=== PATIENT | male | born 1955 | race Caucasian/White ===

== ENCOUNTER 2021-12-24 10:44 | Inpatient (IN) | payer OTHER ==
[2021-12-24] MEDS ORDERED: Morphine 4 MG/ML VIAL ONE ×2 (11:44→14:41)
[2021-12-24 11:53] LABS: #Eosinphils 0.1 thou/uL (0.0-0.7); #Lymphocytes 0.9 thou/uL (1.20-3.40); #Monocytes 0.9 thou/uL (0.11-0.59); #Neutrophils 5.5 thou/uL (1.40-6.50); %Eosinophils 0.8 % (0.0-10.0); %Lymphocytes 12.4 % (21.0-51.0); %Monocytes 12.6 % (0.0-10.0); %Neutrophils 74.1 % (42.0-75.0); Hemoglobin 12.9 g/dL (14.0-18.0); Mean Corpuscular HGB CONC 32.5 g/dL (32.0-36.0); Mean Corpuscular Hemoglobin 27.5 pg (27.0-31.0); Mean Corpuscular Volume 84.6 fl (78.0-98.0); Mean Platelet Volume 8.3 fL (7.4-10.4); Platelet Count 120 thou/uL (130-400); RBC Distribution Width 16.6 % (11.5-14.5); Red Blood Cell (RBC) Count 4.68 mill/uL (4.70-6.10); White Blood Cell (WBC) Count 7.4 thou/uL (4.8-10.8)
[2021-12-24 12:18] LABS: ALT (SGPT) 19 U/L (8-55); AST (SGOT) 35 U/L (5-34); Albumin 4.1 g/dL (3.4-4.8); Alkaline Phosphatase 79 U/L (40-110); Anion Gap 15 mmol/L (10-20); BUN (Urea Nitrogen) 17 mg/dL (8.4-25.7); Bilirubin, Total 1.5 mg/dL (0.2-1.2); CK (CPK) 608 U/L (30-200); Calc. Creatinine Clearance 0 mL/min (70-130); Calcium 9.4 mg/dL (7.8-10.44); Carbon Dioxide 26 mmol/L (23-31); Chloride 96 mmol/L (98-107); Estimated GFR 89; Glucose 121 mg/dL (80-115); Potassium 4.5 mmol/L (3.5-5.1); Protein, Total 7.1 g/dL (5.8-8.1); Sodium 132 mmol/L (136-145)
[2021-12-24] MEDS ORDERED: Piperacillin/Tazobactam 3.375 GM VIAL ONE (13:49)
[2021-12-24] MEDS ORDERED: VANCOMYCIN 2 GRAM/500 ML BAG 2 GM in Premix Bag 1 BAG IVPB SCH (14:15)
[2021-12-24] MEDS ORDERED: TETANUS, DIPHTHERIA TOX,ADULT (TDVAX) 0.5 ML VIAL IM ONE (15:40)
[2021-12-24] MEDS ORDERED: Ondansetron PF 4 MG/2 ML Vial IVP PRN (15:40)
[2021-12-24] MEDS ORDERED: Morphine 2 MG/ML VIAL SLOW IVP PRN (15:40)
[2021-12-24] MEDS ORDERED: Sodium Chloride 0.9% 1,000 ML IV SCH (15:45)
[2021-12-24] MEDS ORDERED: Cyclobenzaprine 10 MG TAB PO PRN (15:46)
[2021-12-24] MEDS ORDERED: traMADol HCl 50 MG TAB PO PRN (15:46)
[2021-12-24 16:41] VITALS: BMI 29.9
[2021-12-24] MEDS: Acetaminophen 500 MG TAB PO SCH ×2 (17:33→23:44)
[2021-12-24] MEDS: traMADol HCl 50 MG TAB PO SCH ×2 (17:33→23:45)
[2021-12-24] MEDS ORDERED: Diazepam 5 MG TAB PO PRN (18:28)
[2021-12-24] MEDS: Bacitracin 1 PK TOP SCH (21:37)
[2021-12-24] MEDS: Gabapentin 300 MG CAP PO SCH (21:37)
[2021-12-24] MEDS: Famotidine/PF 20 mg/2ml Vial SLOW IVP SCH (21:37)
[2021-12-24] MEDS: Senokot S 8.6-50 MG TAB PO SCH (21:37)
[2021-12-24] MEDS: Oxazepam 10 MG CAP PO SCH (21:38)
[2021-12-24] MEDS: Sotalol HCl 80 MG TAB PO SCH (21:38)
[2021-12-25] MEDS: Oxazepam 10 MG CAP PO SCH ×3 (04:57→21:28)
[2021-12-25] MEDS: traMADol HCl 50 MG TAB PO SCH (04:57)
[2021-12-25] MEDS: Acetaminophen 500 MG TAB PO SCH (04:57)
[2021-12-25 06:37] LABS: #Eosinphils 0.1 thou/uL (0.0-0.7); #Lymphocytes 1.2 thou/uL (1.20-3.40); #Monocytes 0.4 thou/uL (0.11-0.59); #Neutrophils 3.3 thou/uL (1.40-6.50); %Lymphocytes 23.4 % (21.0-51.0); %Monocytes 8.2 % (0.0-10.0); %Neutrophils 65.5 % (42.0-75.0); Hemoglobin 12.1 g/dL (14.0-18.0); Mean Corpuscular HGB CONC 30.4 g/dL (32.0-36.0); Mean Corpuscular Hemoglobin 26.5 pg (27.0-31.0); Mean Corpuscular Volume 87.2 fl (78.0-98.0); Mean Platelet Volume 9.1 fL (7.4-10.4); Platelet Count 132 thou/uL (130-400); Red Blood Cell (RBC) Count 4.55 mill/uL (4.70-6.10); White Blood Cell (WBC) Count 5.1 thou/uL (4.8-10.8)
[2021-12-25 06:48] LABS: Anion Gap 13 mmol/L (10-20); BUN (Urea Nitrogen) 15 mg/dL (8.4-25.7); Calc. Creatinine Clearance 97 mL/min (70-130); Carbon Dioxide 26 mmol/L (23-31); Chloride 101 mmol/L (98-107); Estimated GFR 69; Glucose 170 mg/dL (80-115); Phosphorus 3.7 mg/dL (2.3-4.7); Potassium 4.1 mmol/L (3.5-5.1); Sodium 136 mmol/L (136-145)
[2021-12-25] MEDS ORDERED: Acetaminophen/Codeine 30-300mg Tablet PO PRN (08:08)
[2021-12-25] MEDS ORDERED: Cyclobenzaprine 10 MG TAB PO PRN (08:10)
[2021-12-25] MEDS ORDERED: Morphine 4 MG/ML VIAL SLOW IVP SCH (08:15)
[2021-12-25] MEDS: Famotidine/PF 20 mg/2ml Vial SLOW IVP SCH ×2 (08:38→19:59)
[2021-12-25] MEDS: Thiamine 100 MG TAB PO SCH (08:38)
[2021-12-25] MEDS: Losartan 25 MG TAB PO SCH (08:38)
[2021-12-25] MEDS: Bacitracin 1 PK TOP SCH ×2 (08:38→20:07)
[2021-12-25] MEDS: Senokot S 8.6-50 MG TAB PO SCH ×2 (08:39→19:59)
[2021-12-25] MEDS: Acetaminophen 325 MG TAB PO SCH ×3 (08:39→19:58)
[2021-12-25] MEDS: Folic Acid 1 MG TAB PO SCH (08:39)
[2021-12-25] MEDS: Sotalol HCl 80 MG TAB PO SCH ×2 (08:39→19:59)
[2021-12-25] MEDS: Gabapentin 300 MG CAP PO SCH ×3 (08:39→19:58)
[2021-12-25] MEDS: Escitalopram Oxalate 10 mg Tablet PO SCH (08:39)
[2021-12-25] MEDS: Polyethylene Glycol 3350 17 GM Packet PO SCH (08:41)
[2021-12-25] MEDS ORDERED: FLU VACC QS2022-23(65YR UP)/PF 240 MCG/0.7 ML SYRINGE IM ONE (09:00)
[2021-12-25] MEDS: Acetaminophen/Codeine 30-300mg Tablet PO SCH ×2 (12:08→18:07)
[2021-12-25] MEDS: Ibuprofen 200 MG TAB PO SCH ×2 (15:34→21:28)
[2021-12-26] MEDS: Acetaminophen/Codeine 30-300mg Tablet PO SCH ×5 (00:01→23:29)
[2021-12-26] MEDS: Acetaminophen 325 MG TAB PO SCH ×4 (03:28→21:10)
[2021-12-26] MEDS: Ibuprofen 200 MG TAB PO SCH ×3 (05:41→21:10)
[2021-12-26] MEDS: Oxazepam 10 MG CAP PO SCH ×3 (05:42→21:11)
[2021-12-26] MEDS: Gabapentin 300 MG CAP PO SCH ×3 (08:45→21:10)
[2021-12-26] MEDS: Famotidine/PF 20 mg/2ml Vial SLOW IVP SCH (08:47)
[2021-12-26] MEDS: Losartan 25 MG TAB PO SCH (08:48)
[2021-12-26] MEDS: Thiamine 100 MG TAB PO SCH (08:49)
[2021-12-26] MEDS: Folic Acid 1 MG TAB PO SCH (08:49)
[2021-12-26] MEDS: Sotalol HCl 80 MG TAB PO SCH ×2 (08:49→21:11)
[2021-12-26] MEDS: Senokot S 8.6-50 MG TAB PO SCH ×2 (08:51→21:11)
[2021-12-26] MEDS: Polyethylene Glycol 3350 17 GM Packet PO SCH (08:51)
[2021-12-26] MEDS: Bacitracin 1 PK TOP SCH ×2 (08:51→21:10)
[2021-12-26] MEDS: Escitalopram Oxalate 10 mg Tablet PO SCH (08:53)
[2021-12-26] MEDS: Famotidine 20 MG TAB PO SCH (21:10)
[2021-12-27] MEDS: Acetaminophen 325 MG TAB PO SCH ×2 (02:14→09:14)
[2021-12-27] MEDS: Acetaminophen/Codeine 30-300mg Tablet PO SCH (05:39)
[2021-12-27] MEDS: Ibuprofen 200 MG TAB PO SCH (05:39)
[2021-12-27] MEDS: Oxazepam 10 MG CAP PO SCH (05:40)
[2021-12-27] MEDS ORDERED: Apixaban 5 MG TAB PO SCH ×2 (09:00)
[2021-12-27] MEDS: Thiamine 100 MG TAB PO SCH (09:13)
[2021-12-27] MEDS: Famotidine 20 MG TAB PO SCH (09:13)
[2021-12-27] MEDS: Folic Acid 1 MG TAB PO SCH (09:13)
[2021-12-27] MEDS: Bacitracin 1 PK TOP SCH (09:13)
[2021-12-27] MEDS: Sotalol HCl 80 MG TAB PO SCH (09:13)
[2021-12-27] MEDS: Gabapentin 300 MG CAP PO SCH (09:14)
[2021-12-27] MEDS: Polyethylene Glycol 3350 17 GM Packet PO SCH (09:15)
[2021-12-27] MEDS ORDERED: traMADol HCl 50 MG TAB PO SCH (09:15)
[2021-12-27] MEDS: Senokot S 8.6-50 MG TAB PO SCH (09:15)
[2021-12-27] MEDS: Losartan 25 MG TAB PO SCH (09:16)
[2021-12-27] MEDS: Escitalopram Oxalate 10 mg Tablet PO SCH (11:48)
[2021-12-27] MEDS ORDERED: Acetaminophen/Codeine 30-300mg Tablet PO SCH (12:00)
[2021-12-28 02:46] VITALS: BP 110/69
[2021-12-28 03:13] VITALS: TEMP 98.7
== END 2021-12-27 15:55 | disposition home or self-care (01) | DRG 914 ==
LOC: ERS 10:44 → SURG A 15:07 → OBSVTOIN 12-27 07:59
PROVIDERS: ADMIT Surgery; ATTEND Surgery
DX: S87.81XA Crushing injury of right lower leg, initial encounter (principal); Z23 Encounter for immunization; S80.11XA Contusion of right lower leg, initial encounter; W01.0XXA Fall on same level from slipping, tripping and stumbling without subsequent striking against object, initial encounter; I10 Essential (primary) hypertension; I48.91 Unspecified atrial fibrillation; Z96.652 Presence of left artificial knee joint; G62.9 Polyneuropathy, unspecified; Z96.611 Presence of right artificial shoulder joint; Z79.01 Long term (current) use of anticoagulants; Z98.1 Arthrodesis status; Z98.890 Other specified postprocedural states
CPT/HCPCS: 36415; 80048; 80053; 82306; 82550; 82607; 83735; 84100; 85025; 90471; 90472; 90662; 90714; 93923; 96365; 96367; 96375; 96376; 97139; G0008; G0378; J2270; J2543; J3370; J7050; S0028